=== PATIENT | female | born 1975 | race Caucasian/White ===

== ENCOUNTER 2017-01-31 09:32 | Emergency (ER) | payer BC, OTHER ==
[~2017-01-31] VITALS: Ht 152.4 cm; Wt 69.2 kg
[2017-01-31] MEDS ORDERED: NASA1SPR (09:43)
[2017-01-31] MEDS ORDERED: ZYRT10CA PO (09:43)
[2017-01-31 10:15] LABS: MICROSCOPIC INDICATED? MAN YES (NO)
[2017-01-31 10:32] LABS: CONTROL LINE UCG INT CTR LINE PRESENT
[2017-01-31 10:37] LABS: RBC, URINE TNTC /hpf (0-3); SQUAMOUS EPITHELIAL CELL URINE MOD AMOUNT /hpf (SMALL AMT)
[2017-01-31 10:38] LABS: HYALINE CAST, URINE NONE SEEN /lpf (0-1)
[2017-01-31 10:41] LABS: BACTERIA, URINE SMALL AMOUNT
[2017-01-31 10:42] LABS: MICROSCOPIC EXAM PERFORMED
[2017-01-31 11:15] LABS: BASO % 0.7 % (0.0-1.0); EOS # 0.1 K/mm3 (0.0-0.50); EOS % 1.5 % (0.0-3.0); LARGE UNSTAINED CELL # 0.1 K/mm3 (0.0-0.4); LARGE UNSTAINED CELL % 1.6 % (0.0-4.0); LYMPH # 1.2 K/mm3 (1.5-4.5); LYMPH % 22.2 % (24.0-44.0); MEAN CORPUSCULAR HEMOGLOBIN 31.9 pg (27.0-33.0); MEAN CORPUSCULAR HGB CONC 34.9 g/dl (32.0-36.5); MEAN CORPUSCULAR VOLUME 91.4 fl (80.0-96.0); MONO # 0.3 K/mm3 (0.0-0.8); MONO % 6.6 % (0.0-5.0); NEUTROPHILS # 3.5 K/mm3 (1.8-7.7); NEUTROPHILS % 67.3 % (36.0-66.0); PLATELET COUNT, AUTOMATED 201 k/mm3 (150-450); RED CELL DISTRIBUTION WIDTH 12.3 % (11.5-14.5); WHITE BLOOD COUNT 5.2 K/mm3 (4.0-10.0)
[2017-01-31 11:44] LABS: ALBUMIN/GLOBULIN RATIO 1.18 (1.00-1.93); ALKALINE PHOSPHATASE 78 U/L (45-117); ALT/SGPT 23 U/L (12-78); AMYLASE 56 U/L (25-115); ANION GAP 4 MEQ/L (8-16); AST/SGOT 13 U/L (15-37); BILIRUBIN,DIRECT 0.1 MG/DL (0.0-0.2); BILIRUBIN,TOTAL 0.6 MG/DL (0.2-1.0); BLOOD UREA NITROGEN 9 MG/DL (7-18); CALCIUM LEVEL 8.6 MG/DL (8.5-10.1); CARBON DIOXIDE LEVEL 28 MEQ/L (21-32); CHLORIDE LEVEL 107 MEQ/L (98-107); CREATININE FOR GFR 0.68 MG/DL (0.55-1.02); GLOMERULAR FILTRATION RATE > 60.0 (>60); GLUCOSE, FASTING 98 MG/DL (70-105); POTASSIUM SERUM 3.9 MEQ/L (3.5-5.1); SODIUM LEVEL 139 MEQ/L (136-145); TOTAL PROTEIN 7.4 GM/DL (6.4-8.2)
[2017-01-31 12:18] VITALS: BP 139/94
[2017-01-31] MEDS ORDERED: NAPR500T PO (12:45)
[2017-01-31] MEDS ORDERED: FLOM5CAP PO (12:45)
[2017-01-31] MEDS ORDERED: ZOFR4TAB3 PO (12:45)
--- NOTE | 2017-01-31 15:59 | REP ---
CT ABDOMEN AND PELVIS WITHOUT IV CONTRAST: CT abdomen and pelvis performed without IV or oral contrast material. Sagittal and coronal reconstruction images are performed. Visualized lung bases are clear. The liver demonstrates two hypodensities which are nonspecific, one in the left lobe superiorly measuring 1.2 cm in diameter and one in right lobe inferiorly measuring 2 cm in diameter. Recommend dedicated followup CT of the liver with contrast to further evaluate. Spleen, adrenals, pancreas, and left kidney are grossly unremarkable. Right kidney demonstrates a calculus at the ureteropelvic junction measuring 10 x 6 mm. There does appear to be mild right hydronephrosis. Intrarenal calculus 3 mm in diameter is seen in the lower pole as well as another in the upper pole of the right renal collecting system. There is no abdominal aortic aneurysm. There is no adenopathy. There is no free air or free fluid. There is no bowel wall thickening. There is no evidence of appendicitis. In the pelvis urinary bladder appears unremarkable. There does appear to be a small cyst of the right ovary 2.6 cm in diameter. IMPRESSION: Calculus at the right ureteropelvic junction 10 x 6 mm with apparent mild right hydronephrosis. Two intrarenal calculi on the right. No hydronephrosis on the left. Small right ovarian cyst of 2.6 cm in diameter. Two hypodense nodular areas in the liver, recommend followup dedicated CT of the liver with contrast to further evaluate. Signed by Alan Rey MD 01/31/2017 05:10 P
--- NOTE | 2017-02-01 08:59 | ED PDOC ---
Post-Departure Follow-Up radiology rpeort faxed to Ingris Jara MD Feb 01, 2017 08:59
== END 2017-01-31 12:52 | disposition home or self-care (01) ==
LOC: M ED 09:32
DX: N20.1 Calculus of ureter (principal); N83.201 Unspecified ovarian cyst, right side; Z87.442 Personal history of urinary calculi; Z79.899 Other long term (current) drug therapy

== ENCOUNTER → 2017-12-21 | Outpatient (CLI) | payer OTHER | LOC: M RAD 09:11 | DX: M25.562 Pain in left knee (principal) | CPT/HCPCS: 73564 ==

== ENCOUNTER 2018-04-07 10:29 | Emergency (ER) | payer OTHER | END 2018-04-07 11:24 | disposition home or self-care (01) | LOC: M ED 10:29 | DX: H66.93 Otitis media, unspecified, bilateral (principal); L01.00 Impetigo, unspecified; Z87.442 Personal history of urinary calculi; Z79.899 Other long term (current) drug therapy | CPT/HCPCS: 99282 ==

== ENCOUNTER → 2018-07-31 | Outpatient (CLI) | payer OTHER ==
[~2018-07-31] MED LIST: BACT2CRE TOP; CIPR0.3S AU; FLOM0.4C39 PO; NAPR-50 PO; NASA1SPR; SUDA15LI2 PO; ZOFR4TAB14 PO; ZYRT10CA PO
== END ==
LOC: M OUTALCOH 08:11
PROVIDERS: ATTEND Psychiatry & Neurology Psychiatry
DX: Z03.89 Encounter for observation for other suspected diseases and conditions ruled out (principal)

== ENCOUNTER 2018-08-07 10:30 | Outpatient (RCR) | payer OTHER | END 2018-08-16 | LOC: M OUTALCOH 10:30 | PROVIDERS: ATTEND Psychiatry & Neurology Psychiatry | DX: Z03.89 Encounter for observation for other suspected diseases and conditions ruled out (principal) ==

== ENCOUNTER → 2020-01-02 | Outpatient (CLI) | payer SELFPAY ==
[~2020-01-02] MED LIST changes: -CIPR0.3S AU; +CIPR0.3S6 AU; -NAPR-50 PO; +NAPR-837 PO
== END ==
LOC: M LABSMTC 12:40
PROVIDERS: ATTEND Pediatrics
DX: Z03.818 Encounter for observation for suspected exposure to other biological agents ruled out (principal); Z11.59 Encounter for screening for other viral diseases